=== PATIENT | male | born 1945 | race Caucasian/White ===

== ENCOUNTER 2019-09-26 08:39 | Outpatient (CLI) | payer OTHER | END 2019-09-26 23:59 | disposition home or self-care (01) | LOC: PETCFH 08:39 | PROVIDERS: ATTEND Otolaryngology | DX: C32.9 Malignant neoplasm of larynx, unspecified (principal); J84.10 Pulmonary fibrosis, unspecified | CPT/HCPCS: 78815; A9552 ==

== ENCOUNTER → 2019-11-23 | Outpatient (CLI) | payer OTHER | END | disposition home or self-care (01) | LOC: RAD 08:24 | DX: K22.8 Other specified diseases of esophagus (principal); R13.19 Other dysphagia | CPT/HCPCS: 74220 ==